=== PATIENT | male | born 1990 | race Two or more races ===

== ENCOUNTER 2021-11-03 10:54 | Emergency (ER) | payer MEDICAID ==
[~2021-11-03] VITALS: Ht 172.7 cm; Wt 95.3 kg
--- NOTE | 2021-11-03 11:18 | NUR ---
[email or web address], medical screening exam in progress
[2021-11-03] MEDS ORDERED: IV NORMAL SALINE 500 ML BAG IV ONE (11:30)
[2021-11-03] MEDS ORDERED: KETOROLAC TROMETHAMINE 15 MG INJ ONE (11:31)
[2021-11-03 11:38] LABS: *BILIRUBIN,URIN NEGATIVE (NEGATIVE); *BLOOD, URINE 1+ (NEGATIVE); *COLOR,URINE YELLOW (YELLOW); *KETONES,URINE NEGATIVE (NEGATIVE); *UROBILINOGEN,URINE 0.2 E.U./dl (NORMAL); LEUKOCYTE ESTERASE ,URINE NEGATIVE (NEGATIVE); NITRITE, URINE NEGATIVE (NEGATIVE); PH,URINE 5.5 (5.0-8.0); UGLUCOSE NEGATIVE (NEGATIVE)
[2021-11-03 11:43] LABS: HEMATOCRIT 47.5 % (36.7-47.1); MEAN CORPUSCULAR VOLUME 86.1 fL (73.0-96.2); PLATELET COUNT (AUTO) 267 K/uL (152-348)
[2021-11-03] MEDS ORDERED: KETOROLAC TROMETHAMINE 15 MG INJ IVP ONE (11:45)
[2021-11-03 11:57] LABS: *CLARITY,URINE SLIGHTLY HAZY (CLEAR)
[2021-11-03 12:06] LABS: BILIRUBIN,TOTAL 0.8 mg/dL (0.2-1.0); CREATININE 1.1 mg/dL (0.6-1.3); POTASSIUM 4.2 mmol/L (3.5-5.1); TOTAL PROTEIN, SERUM 9.4 g/dL (6.4-8.2)
[2021-11-03 12:22] LABS: RBC,URINE 0-3 /HPF (0-3); WBC,URINE 0-3 /HPF (0-3)
[2021-11-03 12:23] LABS: SQUAMOUS EPITHELIAL CELL,UR FEW /HPF (NONE SEEN)
[2021-11-03 12:24] LABS: BACTERIA,URINE FEW /HPF (NONE SEEN); URINE AMORPHOUS URATE MODERATE /HPF
--- NOTE | 2021-11-03 12:52 | NUR ---
IV removed. Catheter intact and site benign. Pressure and 4x4 gauze applied to site. No bleeding noted. Patient discharged to home in stable condition. Written and verbal after care instructions given. Patient verbalized understanding and compliance of instructions. Stressed follow up with primary doctor or return to ER for worsening s/s. Copies of all tests' results were given to patient.
[2021-11-03 12:54] VITALS: BP 130/80
== END 2021-11-03 12:52 | disposition home or self-care (01) ==
LOC: ER 10:54
DX: R10.32 Left lower quadrant pain (principal); R25.2 Cramp and spasm; Z83.3 Family history of diabetes mellitus
CPT/HCPCS: 99285; 74176; 93970; 96374; 80053; 81001; 83690; 85025; 36415; J1885; J7040; A4663